=== PATIENT | female | born 1990 | race Caucasian/White ===

== ENCOUNTER 2020-09-25 09:02 | Emergency (ER) | payer BC, SELFPAY ==
--- NOTE | ~2020-09-25 | CT_ITS ---
EXAMINATION: CT abdomen pelvis w con INDICATION: Lower abdominal pain, hematochezia, history of Crohn's TECHNIQUE: Computed tomographic images of the abdomen and pelvis were obtained after the administrati on of 100 cc of Omnipaque 350 intravenous contrast. The dose-length product (DLP) was 402.97 mGy-cm. Automated exposure control and iterative reconstruction technique were employed. COMPARISON: 03/26/2016 FINDINGS: The lung bases are clear. The heart size is normal. The liver, spleen, pancreas, gallbladde r, and adrenal glands are normal. The kidneys are unremarkable. No pathologically enlarged abdominal or pelvic lymph nodes are identified. There is no free intraperitoneal gas or evidence of bowel obstr uction. There is circumferential wall thickening of the distal transverse and proximal descending col on. There is a small fat-containing umbilical hernia. IMPRESSION: 1. Circumferential wall thickening of the distal transverse and proximal descending colon, consistent with colitis. Reviewed, dictated and finalized at location A. IMPRESSION: 1. Circumferential wall thickening of the distal transverse and proximal descen ding colon, consistent with colitis.
[2020-09-25 09:07] VITALS: BP 135/84; PULSE 62; RESP 18; TEMP 36.4; O2SAT 99
[2020-09-25 09:29] VITALS: BP 137/94; BP 147/87; PULSE 70; PULSE 83
[2020-09-25 09:32] LABS: Basophils Absolute Auto 0.1 K/mm3 (0.0-0.1); Basophils Percent Auto 0.5 % (0.2-1.2); Eosinophils Percent Auto 0.3 % (0-4.4); Hematocrit 51.1 % (37.0-47.0); Hemoglobin 17.1 g/dL (12.0-15.0); Immature Granulocyte Absolute 0.04 K/mm3 (0.00-0.031); Immature Granulocyte Percent A 0.4 % (0-0.5); Lymphocytes Absolute Auto 1.41 K/mm3 (0.9-3.2); Lymphocytes Percent Auto 13.6 % (18.3-44.2); Mean Corpuscular HGB Conc 33.5 g/dl (32-36); Mean Corpuscular Volume 101.6 fl (80-100); Monocytes Absolute Auto 0.5 K/mm3 (0.1-0.6); Monocytes Percent Auto 5.2 % (2.6-8.5); Neutrophils Absolute Auto 8.3 K/mm3 (1.3-6.7); Platelet Count Result 327 k/mm3 (150-375); Red Blood Count 5.03 M/mm3 (4.2-5.4); Red Cell Distribution Width 11.6 % (11.5-14.5); White Blood Count 10.3 K/mm3 (4.5-10.0)
[2020-09-25 09:41] LABS: Prothrombin Time 13.1 Seconds (11.1-14.7)
[2020-09-25 09:42] LABS: Partial Thromboplastin Time 26.4 SECONDS (22.3-36.8)
[2020-09-25 09:43] LABS: Alanine Aminotransferase 23 U/L (4-35); Albumin Level 4.7 g/dL (3.5-5.1); Alkaline Phosphatase 46 U/L (38-126); Anion Gap 9 mmol/L (8-16); Aspartate Amino Transferase 35 U/L (14-36); Bilirubin,Total 0.8 mg/dL (0.2-1.3); Blood Urea Nitrogen 6 mg/dL (7-17); Calcium 9.8 mg/dL (8.4-10.2); Carbon Dioxide 26 mmol/L (22-30); Chloride 102 mmol/L (98-107); Estimated CRCL calculation 102 ml/min; Estimated Glomerular Filt Rate > 60; Glucose 97 mg/dL (65-110); Potassium 3.9 mmol/L (3.4-5.0); Sodium 137 mmol/L (137-145)
[2020-09-25 09:51] LABS: Add Urine Microscopic? YES; Appearance Urine Clear (Clear); Bilirubin Urine Negative (Negative); Blood Urine 2+ (Negative); Color Urine Straw (Yellow); Glucose Urine UA Negative (Negative); Ketones Urine Trace mg/dL (Negative); Leukocyte Esterase Ur Negative LEU/UL (Negative); Nitrate Urine Negative (Negative); Protein Urine Negative (Negative); RBC Urine 0-2 /hpf (0-2); Specific Grav Ur 1.008 (1.001-1.035); Squamous Epithelial Cell Urine Rare /hpf (Few); Urobilinogen Urine Negative mg/dL (<2.0); WBC Urine 0-3 /hpf
--- NOTE | 2020-09-25 10:23 | ED.ABDPAIN ---
HPI - Abdominal Pain General Chief Complaint: GI Bleed Stated Complaint: stomach pain, blood clots in stool Time Seen by Provider: 09/25/20 09:39 Source: patient Mode of arrival: ambulatory Limitations: no limitations History of Present Illness HPI narrative: Patient is a 29-year-old female who presents complaining of lower abdominal pain and cramping. Patient reports hematochezia starting this a.m. She reports clots. Patient reports a history of Crohn's and has been on Humira x1 month. She reports fever and chills starting Friday. Patient is afebrile at this time. Patient appears uncomfortable and tearful during assessment. She denies other significant medical history. She denies all other complaints at this time. MD elicited complaint: abdominal pain Related Data Home Medications Medication Instructions Recorded Confirmed adalimumab [Humira(CF) Pen mg SUBCUT 09/25/20 [id number]] escitalopram oxalate mg 09/25/20 norethindrone (contraceptive) mg 09/25/20 Allergies Allergy/AdvReac Type Severity Reaction Status Date / Time No Known Allergies Allergy Verified 09/25/20 09:10 Review of Systems Review of Systems: CONSTITUTIONAL: Reports fever, chills, or sweats. EYES: Denies visual changes, redness, or discharge. ENT: Denies rhinorrhea, congestion, sore throat, or otalgia. CARDIOVASCULAR: Denies chest pain, palpitations, or edema. RESPIRATORY: Denies cough or dyspnea. GASTROINTESTINAL: Reports abdominal pain, nausea, and diarrhea starting this a.m. GENITOURINARY: Denies dysuria or hematuria. SKIN: Denies rash or itching. MUSCULOSKELETAL: Denies back pain, joint pain, or myalgia. NEUROLOGIC: Denies headache, numbness, dizziness, or weakness. PSYCHIATRIC: Denies anxiety or depression. [facility] Past Medical History Medical History (Updated 09/25/20 @ 13:14 by MARCO A Tolbert) Crohn's disease Surgical History Surgical History (Updated 09/25/20 @ 10:25 by MARCO A Tolbert) No significant past surgical history Social History Social History (Updated 09/25/20 @ 10:26 by MARCO A Tolbert) Smoking status: Never smoker Alcohol intake: current Alcohol use details: Occasional Substance use: never Living arrangements: with family Occupation/Education: occupation Exam Narrative: GENERAL: Well-appearing, well-nourished, and in no acute distress. HEAD: Normocephalic, atraumatic. EYES: EOMI. No redness or drainage. Conjunctiva are normal. ENT: Mucous membranes pink and moist. CHEST: No respiratory distress. HEART: Regular rate and rhythm. GI: Soft, tenderness with palpation. No distention. Bowel sounds normal in all quadrants. Hemoccult positive MUSCULOSKELETAL: No bony tenderness. EXTREMITIES: Normal range of motion. No edema. SKIN: Warm, dry, no rash. NEURO: No focal deficits. Alert and oriented x3. Gait steady. PSYCH: Normal affect. No signs of depression or anxiety. Course Consultations Consultation #1: Spoke with Dr. David Sanabria, patient's clinical trial assistant, who request patient started on Flagyl at this time and follow-up with his office tomorrow. Vital Signs Vital signs: Vital Signs Temperature 36.4 C L 09/25/20 09:07 Pulse Rate 62 09/25/20 09:07 Respiratory Rate 18 09/25/20 09:07 Blood Pressure 135/84 09/25/20 09:07 Pulse Oximetry 99 09/25/20 09:07 Temperature 36.4 C L 09/25/20 09:07 Pulse Rate 83 09/25/20 09:29 Respiratory Rate 18 09/25/20 09:07 Blood Pressure 137/94 H 09/25/20 09:29 Pulse Oximetry 99 09/25/20 09:07 Reviewed-patient is informed that they may have pre-hypertension or hypertension based on a blood pressure reading. I recommend the patient call the primary care provider listed on their discharge instructions or a physician of their choice this week to arrange follow-up for further evaluation of possible pre-hypertension or hypertension. MDM - Abdominal Pain MDM Narrative Medical decision making narrativ
[2020-09-25] MEDS: ONDANSETRON INJ 4 MG/2 ML VIAL IV PUSH (10:48)
[2020-09-25] MEDS: SODIUM CHLORIDE 0.9% IV 1,000 ML 999 ML IV CONT (10:48)
[2020-09-25] MEDS: MORPHINE SULFATE (*CRX) 4 MG/ML INJ IV PUSH (10:48)
[2020-09-25 13:36] VITALS: BP 125/74; PULSE 82; RESP 16; TEMP 36.7; O2SAT 100
== END 2020-09-25 13:37 | disposition home or self-care (01) ==
PROVIDERS: Emergency Medicine; Emergency Provider Nurse Practitioner; PCP Nurse Practitioner Family
DX: K50.90 Crohn's disease, unspecified, without complications (principal); K52.9 Noninfective gastroenteritis and colitis, unspecified; R03.0 Elevated blood-pressure reading, without diagnosis of hypertension
CPT/HCPCS: 36415; 74177; 80053; 81001; 81025; 85025; 85610; 85730; 86850; 86900; 86901; 96361; 96374; 96375; 99284; J2270; J2405; J7030; Q9967